=== PATIENT | male | born 1980 | race Caucasian/White ===

== ENCOUNTER 2017-05-29 09:35 | Outpatient (CLI) | payer OTHER | END 2017-05-29 09:36 | disposition home or self-care (01) | LOC: SC 09:35 | PROVIDERS: ATTEND Specialist | DX: G47.30 Sleep apnea, unspecified (principal); R51 Headache; R06.83 Snoring; R53.83 Other fatigue; E66.9 Obesity, unspecified; Z68.34 Body mass index [BMI] 34.0-34.9, adult | CPT/HCPCS: 99205; 99212 ==

== ENCOUNTER 2017-09-25 19:35 | Outpatient (CLI) | payer OTHER | END 2017-09-25 19:36 | disposition home or self-care (01) | LOC: SC 19:35 | PROVIDERS: ATTEND Internal Medicine Pulmonary Disease | DX: G47.33 Obstructive sleep apnea (adult) (pediatric) (principal) | CPT/HCPCS: 95810 ==

== ENCOUNTER 2017-10-13 11:20 | Outpatient (CLI) | payer OTHER | END 2017-10-13 11:21 | disposition home or self-care (01) | LOC: SC 11:20 | PROVIDERS: ATTEND Internal Medicine Pulmonary Disease | DX: G47.33 Obstructive sleep apnea (adult) (pediatric) (principal) | CPT/HCPCS: 99212; 99213 ==

== ENCOUNTER 2017-11-13 09:41 | Outpatient (CLI) | payer OTHER | END 2017-11-13 09:42 | disposition home or self-care (01) | LOC: SC 09:41 | PROVIDERS: ATTEND Nurse Practitioner Family | DX: G47.33 Obstructive sleep apnea (adult) (pediatric) (principal) | CPT/HCPCS: 99212; 99214 ==